=== PATIENT | female | born 1950 | race Caucasian/White ===

== ENCOUNTER 2016-10-06 11:23 | Emergency (ER) | payer OTHER ==
[~2016-10-06] VITALS: Ht 170.2 cm; Wt 90.7 kg
[~2016-10-06 11:23] MED LIST: 12 HOUR DECONG120 M1 PO; ALEVE220 MG PO; ARTIFICIAL TEAR15 M1 BOTH EYES; ASCORBIC ACID100 MG PO; ASPIRIN81 M2 PO; ATORVASTATIN CA10 MG PO; BACTROBAN NASAL1 G1 BOTH NARES; CELEBREX200 MG PO; CLINDAMYCIN HC300 MG PO; COLACE100 MG PO; COUMADIN1 MG PO; COUMADIN7.5 MG PO; DAILY VITAMIN1 EAC8 PO; ECOTRIN81 M1 PO; ENDOCET 5-3251 EACH PO; FLEXERIL10 MG PO; FLEXERIL5 MG PO; FLONASE16 G1 BOTH NARES; HYDROCODON-ACE1 EAC7 PO; LACTULOSE10 GM/151 PO; LEVOTHYROXINE50 MCG PO; LINZESS290 MCG PO; LO-DOSE ASPIRIN81 M1 PO; LODINE400 MG PO; LORCET 5-325 M1 EACH PO; LOW DOSE ASPIRI81 M1 PO; MECLIZINE HCL25 MG PO; METOPROLOL SUCC25 MG PO; METOPROLOL SUCC50 MG PO; MIRALAX17 GM PO; MIRALAX255 GM PO; MULTI-DAY PLUS1 EACH PO; NOLVADEX20 MG PO; PAROXETINE HCL20 MG PO; PERCOCET 5/31 TABLET PO; PREDNISONE20 MG PO; PROTONIX40 MG PO; SIMVASTATIN40 MG PO; SYNTHROID50 MCG PO; TAMOXIFEN CITRA20 MG PO; TAMOXIFEN CITRATE; TIZANIDINE HCL4 MG PO; TOPROL XL25 MG PO; TRAMADOL HCL50 MG PO; VITAMIN D-32000 UNI1 PO; WELLBUTRIN XL300 MG PO; ZANAFLEX4 MG PO; ZOCOR40 MG PO
[2016-10-06 13:24] VITALS: BP 164/92
== END 2016-10-06 13:25 | disposition home or self-care (01) ==
LOC: EME 11:23
DX: S16.1XXA Strain of muscle, fascia and tendon at neck level, initial encounter (principal); S00.83XA Contusion of other part of head, initial encounter; E78.5 Hyperlipidemia, unspecified; E03.9 Hypothyroidism, unspecified; W18.30XA Fall on same level, unspecified, initial encounter; Z86.000 Personal history of in-situ neoplasm of breast; Z90.13 Acquired absence of bilateral breasts and nipples; Z96.652 Presence of left artificial knee joint
CPT/HCPCS: 72040; 99281; 99283

== ENCOUNTER 2017-03-18 07:53 | Observation (INO) | payer OTHER ==
[~2017-03-18] VITALS: Ht 170.2 cm; Wt 87.5 kg
[~2017-03-18 07:53] MED LIST changes: -LEVOTHYROXINE50 MCG PO; +LEVOTHYROXINE75 MCG PO
[2017-03-18 08:59] LABS: EOSINOPHIL (%) 0.6 % (0-5); EOSINOPHIL COUNT 0.1 K/uL (0-0.3); HEMATOCRIT 44.5 % (36.0-46.0); IMMATURE GRANULOCYTE (%) 0.6 % (0.0-0.7); IMMATURE GRANULOCYTE COUNT 0.1 K/uL; INSTRUMENT ABS NEUTROPHIL CT 9.4 K/uL; LYMPHOCYTE COUNT 1.5 K/uL (1.0-2.8); MCH 29.4 PG (29.0-34.0); MEAN PLAT.VOLUME 10.4 uM^3 (9.5-12.4); MONOCYTE (%) 8.2 % (3-12); NEUTROPHIL (%) 78.2 % (45-76); NEUTROPHIL COUNT 9.4 K/uL (1.8-6.4); PLATELET COUNT 308 K/uL (156-360); RBC DIS.WIDTH-SD 45.3 % (39-53)
[2017-03-18 09:21] LABS: TROP-I INTERPRETATION NEGATIVE; TROPONIN-I < 0.01 ng/mL (0.0-0.30)
[2017-03-18 10:03] LABS: CHLORIDE 100 mEq/L (99-109); POTASSIUM 4.2 mEq/L (3.7-5.4); SODIUM 136 mEq/L (136-147)
[2017-03-18 10:05] LABS: GLUCOSE 178 mg/dL (70-99)
[2017-03-18 10:07] LABS: ANION GAP 12 MEQ/L (2-14)
[2017-03-18 10:09] LABS: GFR ESTIMATE (CALCULATED) > 59 mL/min/
[2017-03-18 10:10] LABS: UREA NITROGEN (BUN) 12 mg/dL (9-23)
[2017-03-18] MEDS ORDERED: ROSUVASTATIN CAL5 MG PO (12:00)
[2017-03-18] MEDS ORDERED: METFORMIN HCL500 MG PO (12:02)
[2017-03-18 14:01] LABS: TROP-I INTERPRETATION NEGATIVE; TROPONIN-I < 0.01 ng/mL (0.0-0.30)
[2017-03-18 14:04] VITALS: BP 176/94
[2017-03-18 16:14] VITALS: BP 120/65
[2017-03-18 17:35] LABS: POINT-OF-CARE METER ID UU13113700
[2017-03-18 20:00] VITALS: BP 108/66
[2017-03-18 21:24] LABS: TROP-I INTERPRETATION NEGATIVE; TROPONIN-I < 0.01 ng/mL (0.0-0.30)
[2017-03-19] VITALS: BP 137/75
[2017-03-19 03:51] VITALS: BP 136/78
[2017-03-19 04:49] LABS: HEMATOCRIT 37.2 % (36.0-46.0); MCH 29.7 PG (29.0-34.0); MCHC 33.3 G/DL (30.0-36.0); MEAN PLAT.VOLUME 10.5 uM^3 (9.5-12.4); PLATELET COUNT 280 K/uL (156-360); RBC DIS.WIDTH-SD 45.3 % (39-53); RED BLOOD COUNT 4.18 M/uL (3.80-5.20); WHITE BLOOD COUNT 8.4 K/uL (4.1-10.2)
[2017-03-19 04:59] LABS: CHLORIDE 101 mEq/L (99-109); POTASSIUM 3.8 mEq/L (3.7-5.4); SODIUM 133 mEq/L (136-147)
[2017-03-19 05:00] LABS: GLUCOSE 159 mg/dL (70-99)
[2017-03-19 05:02] LABS: ANION GAP 8 MEQ/L (2-14)
[2017-03-19 05:04] LABS: GFR ESTIMATE (CALCULATED) > 59 mL/min/
[2017-03-19 05:05] LABS: UREA NITROGEN (BUN) 12 mg/dL (9-23)
[2017-03-19 05:09] LABS: TROP-I INTERPRETATION NEGATIVE; TROPONIN-I < 0.01 ng/mL (0.0-0.30)
[2017-03-19 09:09] VITALS: BP 146/80
[2017-03-19] MEDS ORDERED: METHOCARBAMOL750 MG PO (09:47)
== END 2017-03-19 11:59 | disposition home or self-care (01) ==
LOC: EME 07:53 → EDOF 12:32 → ENRESERV 12:36 → EDOF 12:50 → ENRESERV 12:52 → 5WEST 13:50 → ENPENDDIS 03-19 → 5WEST 03-19 11:59
PROVIDERS: Emergency Medicine; Hospitalist; Internal Medicine
DX: R07.9 Chest pain, unspecified (principal); I10 Essential (primary) hypertension; E11.9 Type 2 diabetes mellitus without complications; E78.00 Pure hypercholesterolemia, unspecified; Z85.3 Personal history of malignant neoplasm of breast; E27.8 Other specified disorders of adrenal gland; Z90.13 Acquired absence of bilateral breasts and nipples; Z92.21 Personal history of antineoplastic chemotherapy; Z82.49 Family history of ischemic heart disease and other diseases of the circulatory system; Z87.891 Personal history of nicotine dependence; E03.9 Hypothyroidism, unspecified; Z96.659 Presence of unspecified artificial knee joint; Z98.1 Arthrodesis status; Z79.82 Long term (current) use of aspirin; Z90.49 Acquired absence of other specified parts of digestive tract; Z79.84 Long term (current) use of oral hypoglycemic drugs; Z88.8 Allergy status to other drugs, medicaments and biological substances
CPT/HCPCS: 71010; 71275; 80048; 82948; 84484; 85025; 85027; 93005; 94799; 99281; 99285; C9113; G0378; J1650; J1815; J2270; J7030

== ENCOUNTER 2017-11-13 01:27 | Emergency (ER) | payer OTHER ==
[~2017-11-13] VITALS: Ht 170.2 cm; Wt 84.3 kg
[~2017-11-13 01:27] MED LIST changes: +METFORMIN HCL500 MG PO; +METHOCARBAMOL750 MG PO; +ROSUVASTATIN CAL5 MG PO
[2017-11-13 04:11] VITALS: BP 166/94
== END 2017-11-13 04:21 | disposition home or self-care (01) ==
LOC: EME 01:27
PROC: 2W3GX1Z Immobilization of Right Thumb using Splint (ICD-10-PCS; principal; 2017-11-13)
DX: S69.91XA Unspecified injury of right wrist, hand and finger(s), initial encounter (principal); W01.0XXA Fall on same level from slipping, tripping and stumbling without subsequent striking against object, initial encounter; Y92.007 Garden or yard of unspecified non-institutional (private) residence as the place of occurrence of the external cause; I10 Essential (primary) hypertension; K21.9 Gastro-esophageal reflux disease without esophagitis; E78.5 Hyperlipidemia, unspecified; E03.9 Hypothyroidism, unspecified; Z79.84 Long term (current) use of oral hypoglycemic drugs; Z79.82 Long term (current) use of aspirin; Z87.891 Personal history of nicotine dependence; Z85.3 Personal history of malignant neoplasm of breast; Z98.890 Other specified postprocedural states; Z96.652 Presence of left artificial knee joint; Z90.49 Acquired absence of other specified parts of digestive tract; Z90.13 Acquired absence of bilateral breasts and nipples; Z91.013 Allergy to seafood; Z88.5 Allergy status to narcotic agent; Z88.8 Allergy status to other drugs, medicaments and biological substances
CPT/HCPCS: 70450; 70486; 72125; 73110; 73130; 99281; 99284